=== PATIENT | female | born 1990 | race Caucasian/White ===

== ENCOUNTER 2016-05-06 08:38 | Day surgery (SDC) | payer OTHER ==
[~2016-05-06] VITALS: Ht 162.6 cm; Wt 54.4 kg
[~2016-05-06 08:38] MED LIST: CRYSELLE1 EACH PO
[2016-05-06 09:25] LABS: HEMATOCRIT 40.9 % (36.0-46.0); MCHC 32.8 G/DL (30.0-36.0); MCV 91.7 FL (83-99); RBC DIS.WIDTH-CV 12.6 % (11.8-14.6); RBC DIS.WIDTH-SD 42.5 % (39-53); RED BLOOD COUNT 4.46 M/uL (3.80-5.20); WHITE BLOOD COUNT 6.2 K/uL (4.1-10.2)
[2016-05-06 09:29] VITALS: BP 137/95
[2016-05-06] MEDS ORDERED: MOTRIN800 MG PO (11:15)
[2016-05-06 12:09] LABS: PLATELET COUNT UNABLE TO REPORT K/uL (156-360)
[2016-05-06 12:50] VITALS: BP 98/64
[2016-05-06 13:52] VITALS: BP 105/67
== END 2016-05-06 14:10 | disposition home or self-care (01) ==
LOC: SDC 08:38
PROVIDERS: Obstetrics & Gynecology
PROC: 0DJW4ZZ Inspection of Peritoneum, Percutaneous Endoscopic Approach (ICD-10-PCS; principal; 2016-05-06)
DX: N80.3 Endometriosis of pelvic peritoneum (principal); N94.6 Dysmenorrhea, unspecified; N94.10 Unspecified dyspareunia; R10.2 Pelvic and perineal pain; F17.200 Nicotine dependence, unspecified, uncomplicated; Z82.49 Family history of ischemic heart disease and other diseases of the circulatory system; Z80.3 Family history of malignant neoplasm of breast; Z83.3 Family history of diabetes mellitus; Z84.1 Family history of disorders of kidney and ureter; Z82.3 Family history of stroke; Z82.0 Family history of epilepsy and other diseases of the nervous system; Z82.69 Family history of other diseases of the musculoskeletal system and connective tissue
CPT/HCPCS: 84702; 85027; 86850; 86900; 86901; J0131; J1100; J1170; J1885; J2250; J2405; J2710; J3010